=== PATIENT | female | born 1995 | race African-American/Black ===

== ENCOUNTER 2017-08-11 17:18 | Emergency (ER) | payer SELFPAY, MEDICAID ==
[2017-08-11] MEDS: IBUPROFEN 800 MG TAB PO (19:27)
== END 2017-08-11 20:10 | disposition home or self-care (01) ==
LOC: NEPK 17:18
DX: J10.1 Influenza due to other identified influenza virus with other respiratory manifestations (principal)
CPT/HCPCS: 87804; 87804-59; 99283